=== PATIENT | male | born 1960 | race African-American/Black ===

== ENCOUNTER 2021-09-19 11:24 | Emergency (ER) | payer OTHER ==
[2021-09-19 11:48] VITALS: BP 107/53; PULSE 78; TEMP 98.9; BMI 21.2
== END 2021-09-19 14:29 | disposition home or self-care (01) ==
LOC: JER 11:24
DX: T50.904A Poisoning by unspecified drugs, medicaments and biological substances, undetermined, initial encounter (principal)
CPT/HCPCS: 70450-TC; 72125-TC; 93005; 93010; 99284-25

== ENCOUNTER 2023-12-28 00:35 | Emergency (ER) | payer OTHER ==
[2023-12-28 00:42] VITALS: BP 140/64; PULSE 77; RESP 20; TEMP 97.8; BMI 18.2
== END 2023-12-28 02:52 | disposition home or self-care (01) ==
LOC: JER 00:35
DX: S00.81XA Abrasion of other part of head, initial encounter (principal); W01.198A Fall on same level from slipping, tripping and stumbling with subsequent striking against other object, initial encounter
CPT/HCPCS: 99283-25

== ENCOUNTER 2023-12-29 10:43 | Emergency (ER) | payer OTHER ==
[2023-12-29 10:51] VITALS: RESP 18
[2023-12-29] MEDS ORDERED: ACETAMINOPHEN 500 MG TABLET (FP) ONE (11:49)
[2023-12-29] MEDS: ACETAMINOPHEN 500 MG TABLET (FP) PO ONE (11:52)
[2023-12-29 12:15] LABS: BASO % 0.7 % (0-2.0); EOS % 0.1 % (0-4.5); HEMATOCRIT 39.5 % (35.4-49); HEMOGLOBIN 12.6 GM/dL (11.7-16.9); LYMPH % 27.9 % (8-40); MCH 25.1 pg (25.7-33.7); MEAN CELL VOLUME 78.4 fl (80-96); MEAN PLT VOLUME 7.5 fl (7.5-11.1); MONO % 12.6 % (3.8-10.2); NEUT % 58.7 % (42.8-82.8); PLATELET COUNT 261 10^3/uL (134-434); RBC 5.03 M/mm3 (4.00-5.60); RDW 15.9 % (11.9-15.9)
[2023-12-29 12:40] LABS: POTASSIUM 3.8 mmol/L (3.5-5.1)
[2023-12-29 12:42] LABS: CALCIUM 9.3 mg/dL (8.5-10.1)
[2023-12-29 12:43] LABS: BLOOD UREA NITROGEN 13.8 mg/dL (7-18)
[2023-12-29 12:46] LABS: CREATININE 0.9 mg/dL (0.55-1.3)
[2023-12-29 12:47] LABS: BILIRUBIN,TOTAL 0.6 mg/dL (0.2-1); TOT PROT 7.4 g/dl (6.4-8.2)
[2023-12-29] MEDS ORDERED: FAMOTIDINE 20 MG TABLET ONE (14:14)
[2023-12-29] MEDS ORDERED: IBUPROFEN 400 MG TABLET (FP) PO ONE (14:15)
[2023-12-29] MEDS ORDERED: MAG HYDROX/AL HYDROX/SIMETH 30 ML UNIT-DOSE CUP ONE (14:15)
[2023-12-29] MEDS ORDERED: LIDOCAINE VISCOUS 2% ORAL/TOP 15 ML UNIT-DOSE CUP ONE (14:15)
[2023-12-29] MEDS: LIDOCAINE VISCOUS 2% ORAL/TOP 15 ML UNIT-DOSE CUP MM ONE (14:31)
[2023-12-29] MEDS: IBUPROFEN 400 MG TABLET (FP) PO ONE (14:31)
[2023-12-29] MEDS: MAG HYDROX/AL HYDROX/SIMETH 30 ML UNIT-DOSE CUP PO ONE (14:31)
[2023-12-29] MEDS: FAMOTIDINE 20 MG TABLET PO ONE (14:31)
[2023-12-29 14:57] VITALS: BP 134/76; PULSE 66; TEMP 97.9
== END 2023-12-29 15:23 | disposition home or self-care (01) ==
LOC: JER 10:43
DX: S00.81XA Abrasion of other part of head, initial encounter (principal); R11.2 Nausea with vomiting, unspecified; W01.0XXA Fall on same level from slipping, tripping and stumbling without subsequent striking against object, initial encounter
CPT/HCPCS: 36415; 70450-TC; 70486-TC; 80053; 85025; 99284-25

== ENCOUNTER 2024-01-07 16:45 | Emergency (ER) | payer OTHER ==
[2024-01-07 16:51] VITALS: BP 151/91; PULSE 82; RESP 18; TEMP 98.6; BMI 20.7
[2024-01-07] MEDS ORDERED: ALBUTEROL SO4 2.5/IPRATROPIUM 0.5 INH SOL 3 ML VIAL.NEB. NEB ONE (17:34)
[2024-01-07] MEDS: ALBUTEROL SO4 2.5/IPRATROPIUM 0.5 INH SOL 3 ML VIAL.NEB. NEB ONE (17:41)
== END 2024-01-07 18:48 | disposition home or self-care (01) ==
LOC: JER 16:45
PROC: 3E0F7GC Introduction of Other Therapeutic Substance into Respiratory Tract, Via Natural or Artificial Opening (ICD-10-PCS; principal; 2024-01-07)
DX: R06.02 Shortness of breath (principal); J45.909 Unspecified asthma, uncomplicated; Z20.822 Contact with and (suspected) exposure to COVID-19
CPT/HCPCS: 0241U-QW; 71046-TC-FY; 93005; 93010; 99285-25

== ENCOUNTER 2024-01-25 18:17 | Emergency (ER) | payer OTHER ==
[2024-01-25 18:23] VITALS: BP 134/60; PULSE 69; RESP 16; TEMP 98; BMI 20.9
[2024-01-25] MEDS ORDERED: ALBUTEROL SO4 2.5/IPRATROPIUM 0.5 INH SOL 3 ML VIAL.NEB. NEB ONE (20:11)
[2024-01-25] MEDS: ALBUTEROL SO4 2.5/IPRATROPIUM 0.5 INH SOL 3 ML VIAL.NEB. NEB SCH (20:26)
[2024-01-25 20:37] LABS: BASO % 0.9 % (0-2.0); HEMATOCRIT 35.8 % (35.4-49); HEMOGLOBIN 11.6 GM/dL (11.7-16.9); LYMPH % 20.4 % (8-40); MCH 25.4 pg (25.7-33.7); MCHC 32.3 g/dl (32.0-35.9); MEAN CELL VOLUME 78.6 fl (80-96); MEAN PLT VOLUME 7.4 fl (7.5-11.1); MONO % 16.4 % (3.8-10.2); NEUT % 62.3 % (42.8-82.8); PLATELET COUNT 196 10^3/uL (134-434); RBC 4.56 M/mm3 (4.00-5.60); RDW 16.1 % (11.9-15.9); WHITE BLOOD COUNT 3.1 K/mm3 (4.0-10.0)
[2024-01-25 20:39] LABS: VENOUS BASE EXCESS 0.4 mmol/L (-2-2); VENOUS O2 SATURATION 97.4 % (70-80); VENOUS PCO2 38.9 mmHg (38-52); VENOUS PH 7.421 (7.310-7.410)
[2024-01-25 20:53] LABS: ACTIVATED PTT 30.6 SECONDS (25.2-36.5); INR 0.94 (0.83-1.09); PROTHROMBIN TIME (PATIENT) 10.9 SEC (9.7-13.0)
[2024-01-25 20:57] LABS: POTASSIUM 3.9 mmol/L (3.5-5.1)
[2024-01-25 21:01] LABS: CALCIUM 8.7 mg/dL (8.5-10.1)
[2024-01-25 21:02] LABS: ALBUMIN 3.7 g/dl (3.4-5.0); BLOOD UREA NITROGEN 14.7 mg/dL (7-18)
[2024-01-25 21:05] LABS: CREATININE 0.8 mg/dL (0.55-1.3)
[2024-01-25 21:06] LABS: BILIRUBIN,TOTAL 0.3 mg/dL (0.2-1); TOT PROT 6.7 g/dl (6.4-8.2)
[2024-01-25] MEDS ORDERED: guaiFENesin/CODEINE 10 ML UNIT-DOSE CUPS ONE (21:23)
[2024-01-25] MEDS ORDERED: DEXAMETHASONE SOD PHOSPHATE 10 MG/1 ML VIAL ONE (21:23)
[2024-01-25] MEDS: DEXAMETHASONE SOD PHOSPHATE 10 MG/1 ML VIAL IVPUSH ONE (21:26)
[2024-01-25] MEDS: guaiFENesin 200 MG/10 ML 10 ML UNIT-DOSE CUPS PO ONE (21:26)
== END 2024-01-25 22:10 | disposition home or self-care (01) ==
LOC: JER 18:17
DX: R06.02 Shortness of breath (principal); R05.9 Cough, unspecified; R07.89 Other chest pain; R09.89 Other specified symptoms and signs involving the circulatory and respiratory systems
CPT/HCPCS: 0241U-QW; 36415; 71046-TC-FY; 80053; 82803; 84484; 85025; 85610; 85730; 93005; 93010; 99285-25; J1100

== ENCOUNTER 2024-03-25 08:11 | Emergency (ER) | payer OTHER ==
[2024-03-25 08:18] VITALS: BMI 20.6
[2024-03-25 09:20] LABS: BASO % 1.3 % (0-2.0); EOS % 0.4 % (0-4.5); HEMATOCRIT 35.6 % (35.4-49); HEMOGLOBIN 11.8 GM/dL (11.7-16.9); LYMPH % 34.7 % (8-40); MCH 26.1 pg (25.7-33.7); MCHC 33.2 g/dl (32.0-35.9); MEAN CELL VOLUME 78.6 fl (80-96); MEAN PLT VOLUME 6.9 fl (7.5-11.1); MONO % 16.1 % (3.8-10.2); NEUT % 47.5 % (42.8-82.8); PLATELET COUNT 218 10^3/uL (134-434); RBC 4.53 M/mm3 (4.00-5.60); RDW 16.1 % (11.9-15.9); WHITE BLOOD COUNT 3.2 K/mm3 (4.0-10.0)
[2024-03-25] MEDS ORDERED: ALBUTEROL SO4 2.5/IPRATROPIUM 0.5 INH SOL 3 ML VIAL.NEB. NEB ONE (09:29)
[2024-03-25] MEDS: ALBUTEROL SO4 2.5/IPRATROPIUM 0.5 INH SOL 3 ML VIAL.NEB. NEB ONE (09:35)
[2024-03-25 09:38] LABS: VENOUS O2 SATURATION 82.3 % (70-80); VENOUS PCO2 47.4 mmHg (38-52); VENOUS PH 7.41 (7.310-7.410)
[2024-03-25 11:18] LABS: POTASSIUM 3.8 mmol/L (3.5-5.1)
[2024-03-25 11:20] LABS: BLOOD UREA NITROGEN 8.6 mg/dL (7-18); CALCIUM 8.9 mg/dL (8.5-10.1)
[2024-03-25 11:21] LABS: ALBUMIN 3.8 g/dl (3.4-5.0)
[2024-03-25 11:24] LABS: CREATININE 0.8 mg/dL (0.55-1.3)
[2024-03-25 11:25] LABS: BILIRUBIN,TOTAL 0.4 mg/dL (0.2-1)
[2024-03-25 11:28] LABS: N-TERMINAL BNP 227.1 pg/ml (5-125)
[2024-03-25 12:09] VITALS: BP 159/96; PULSE 98; RESP 18; TEMP 98.1
[2024-03-25] MEDS ORDERED: DEXAMETHASONE 4 MG TABLET (FP) ONE (12:09)
[2024-03-25] MEDS: DEXAMETHASONE 4 MG TABLET (FP) PO ONE (12:12)
== END 2024-03-25 12:30 | disposition home or self-care (01) ==
LOC: JER 08:11
PROC: 3E0F7GC Introduction of Other Therapeutic Substance into Respiratory Tract, Via Natural or Artificial Opening (ICD-10-PCS; principal; 2024-03-25)
DX: R06.02 Shortness of breath (principal); R05.9 Cough, unspecified; Z20.822 Contact with and (suspected) exposure to COVID-19
CPT/HCPCS: 0241U-QW; 36415; 71046-TC-FY; 80053; 82803; 83880; 84484; 85025; 93005; 93010; 99285-25

== ENCOUNTER 2024-09-13 12:24 | Emergency (ER) | payer OTHER ==
[2024-09-13 12:41] VITALS: BP 101/64; PULSE 77; RESP 17; TEMP 98; BMI 20.9
[2024-09-13] MEDS ORDERED: KETOROLAC TROMETHAMINE 30 MG/1 ML VIAL ONE (14:05)
[2024-09-13] MEDS: KETOROLAC TROMETHAMINE 30 MG/1 ML VIAL IM ONE (14:13)
== END 2024-09-13 14:51 | disposition home or self-care (01) ==
LOC: JERFT 12:24
PROC: 3E0133Z Introduction of Anti-inflammatory into Subcutaneous Tissue, Percutaneous Approach (ICD-10-PCS; principal; 2024-09-13)
DX: M25.462 Effusion, left knee (principal); M25.562 Pain in left knee
CPT/HCPCS: 73562-TC-LT-FY; 99284-25